=== PATIENT | female | born 1980 | race American Indian/Alaskan Native ===

== ENCOUNTER 2020-02-25 09:37 | Day surgery (SDC) | payer BC ==
[~2020-02-25 09:37] MED LIST: SODIUM CHLORIDE 0.9% 1000 ML 1,000 ML IV SCH
[2020-02-25] MEDS ORDERED: propofoL 200 MG/20 ML VIAL IV ONE ×3 (11:30→11:54)
[2020-02-25] MEDS ORDERED: LIDOCAINE MPF (2%) 20 MG/1 ML VIAL 5 ML ONE (12:05)
--- NOTE | 2020-02-25 12:11 | Procedure Note ---
Date of procedure: 02/25/20 Pre-op diagnosis: Changes in Bowel Habit Post-op diagnosis: other (R/o Microscopic Colitis/ R/O Ileitis/ Minor,Sigmoid Diverticuli) Procedure: Colonoscopy with Biopsy Anesthesia: MAC Surgeon: LATANYA STAUFFER Estimated blood loss: minimal Pathology: list Specimen disposition: to lab Condition: stable Disposition: same day (Treat with Linzess. Avoid aspirin and NSAID for 5 days; otherwise resume home medication and follow up in 1 to 2 weeks ([phone]).)
[2020-02-25 12:33] VITALS: BP 118/83
--- NOTE | 2020-02-25 13:18 | Operative Report ---
COLONOSCOPY INDICATIONS: This is a 40-year-old female who has been having changes in bowel habit. Colonoscopy was done to make sure that there was not any associated lower GI pathology present accounting for it. DESCRIPTION OF PROCEDURE: The procedure was done after getting informed consent with MAC anesthesia. Initial rectal exam was unremarkable. Instrument was passed through the rectum onto the cecum, which was identified with ileocecal valve and appendiceal orifice. Visualization was fair. The terminal ileum was intubated, showed normal mucosa. Biopsy was done to rule out for possible ileitis. Cecum, ascending colon, transverse colon, descending colon, and sigmoid was essentially normal other than for a solitary diverticula noted in the sigmoid and the rectum appeared normal on the retroverted view. Random biopsies were done throughout the colon to rule out for possible microscopic colitis with minimal bleeding. ASSESSMENT: Changes in bowel habit, rule out ileitis, rule out microscopic colitis, minor diverticula. No internal hemorrhoids noted. There was minimal bleeding associated with the procedure. PLAN: To wait for the biopsy results, have the patient avoid aspirin and aspirin-related products for the next few days. The patient may be given Linzess 145 mcg to be tried for her changes in bowel habits and have the patient follow up in the office in 1-2 weeks' time. The procedure was done in the GI lab with assistance of the GI lab team, which included RNImani with the assistance of anesthesia and the electroencephalographic technologistRegina. JOB# [id number] ALETHA/LILIANA
--- NOTE | 2020-02-25 14:12 | Anesthesia Day of Surgery ---
Anesthesia Day of Surgery - Day of Surgery Patient Examined: Yes Patient H&P Reviewed: Yes Patient is NPO: Yes
--- NOTE | 2020-02-25 14:12 | Post Anesthesia Evaluation ---
- Post Anesthesia Evaluation Patient Participated: Yes Airway Patent: Yes Stable Respiratory Function: Yes Nausea/Vomiting: No Temp > 96.8F: Yes Pain Manageable: Yes Adequeate Hydration: Yes Anesthesia Complications: No
--- NOTE | 2020-02-25 14:12 | Anesthesia Consultation ---
Anesthesia Consult and Med Hx - Airway Anesthetic Teeth Evaluation: Good ROM Head & Neck: Adequate Mental/Hyoid Distance: Adequate Mallampati Class: Class III Intubation Access Assessment: Possibly Difficult - Pulmonary Exam CTA: Yes - Cardiac Exam Cardiac Exam: RRR - Pre-Operative Health Status ASA Pre-Surgery Classification: ASA1 Proposed Anesthetic Plan: MAC - Pulmonary Hx Smoking: No Hx Respiratory Symptoms: No - Cardiovascular System Hx Hypertension: No - Central Nervous System CVA: No - Endocrine Hx Renal Disease: No Hx Liver Disease: No Hx Insulin Dependent Diabetes: No Hx Non-Insulin Dependent Diabetes: No Hx Thyroid Disease: No - Other Systems Hx Obesity: No
== END 2020-02-25 09:38 | disposition home or self-care (01) ==
LOC: GIO 09:37
DX: R19.4 Change in bowel habit (principal); K57.30 Diverticulosis of large intestine without perforation or abscess without bleeding; K63.89 Other specified diseases of intestine; Z79.899 Other long term (current) drug therapy
CPT/HCPCS: 45380; 81025; 88305; J2704; J7030

== ENCOUNTER 2020-03-03 08:51 | Day surgery (SDC) | payer BC ==
--- NOTE | 2020-03-03 10:23 | Anesthesia Consultation ---
Anesthesia Consult and Med Hx Date of service: 03/03/20 - Airway Anesthetic Teeth Evaluation: Good ROM Head & Neck: Adequate Mental/Hyoid Distance: Adequate Mallampati Class: Class I Intubation Access Assessment: Good - Pulmonary Exam CTA: Yes - Pre-Operative Health Status ASA Pre-Surgery Classification: ASA2 Proposed Anesthetic Plan: MAC - Pulmonary Hx Smoking: No Hx Asthma: No Hx Respiratory Symptoms: No Hx Sleep Apnea: No - Cardiovascular System Hx Hypertension: No Hx Angina: No Hx Valvular Heart Disease: No - Central Nervous System Hx Neuromuscular Disorder: No Hx Seizures: No CVA: No Hx Psychiatric Problems: No - Gastrointestinal Hx Gastroesophageal Reflux Disease: Yes - Endocrine Hx Renal Disease: No Hx Liver Disease: No Hx Insulin Dependent Diabetes: No Hx Non-Insulin Dependent Diabetes: No Hx Thyroid Disease: No - Other Systems Hx Alcohol Use: Yes Hx Substance Use: No Hx Cancer: No Hx Obesity: No - Additional Comments Anesthesia Medical History Comments: Patient denies previous anesthesia complications.
--- NOTE | 2020-03-03 10:27 | Anesthesia Day of Surgery ---
Anesthesia Day of Surgery - Day of Surgery Patient Examined: Yes Patient H&P Reviewed: Yes Patient is NPO: Yes Beta Blockers: No Cardiac Clearance: No Pulmonary Clearance: No
[2020-03-03] MEDS ORDERED: propofoL 200 MG/20 ML VIAL IV ONE (10:56)
[2020-03-03] MEDS ORDERED: LIDOCAINE MPF (2%) 20 MG/1 ML VIAL 5 ML ONE (10:57)
[2020-03-03] MEDS ORDERED: SODIUM CHLORIDE 0.9% 1000 ML IV SOLN IV ONE (11:48)
--- NOTE | 2020-03-03 12:01 | History and Physical Report ---
HISTORY OF PRESENT ILLNESS: This is a 40-year-old female who had a colonoscopy done about a week ago because of changes in her bowel habits. At that time, she was noted to have a normal looking mucosa. Biopsies at that time were done randomly from the colon as well as from the terminal ileum to rule out for microscopic colitis and for ileitis. The biopsy that was done from the ileum showed evidence of CD3 as well as CD20 cells. The patient also gives a history of gluten enteropathy and has been advised to have EGD done to make sure that she does not have any associated celiac disease or any changes in markers for abnormal lymphocytes like the CD3 and CD20 that was noted in the ileum. She is otherwise doing well. ALLERGIES: No known allergies. SOCIAL HISTORY: Denies history of smoking or alcohol use. No cardiac issues. No flu shots. PHYSICAL EXAMINATION: VITAL SIGNS: Temperature is 97.5, blood pressure is 123/83, pulse is 72, height is 5 feet 4 inches and weighs 170 pounds. HEENT: Shows no JVD. LUNGS: Clear to auscultation. CARDIOVASCULAR: Normal. ABDOMEN: Showed some lower abdominal tenderness. Bowel sounds present No pedal edema. NEUROLOGIC: The patient is otherwise alert and oriented. ASSESSMENT: Possible celiac disease, possible history of lymphoma since she had CD3 and CD20 cells in the ileum and minor diverticula. PLAN: To do an EGD for further assessment to check labs, namely CBC, follow up after the EGD and to do additional radiologic studies if warranted and also possibly to refer the patient to a automation and control engineer. JOB# [id number] ALETHA/LILIANA
--- NOTE | 2020-03-03 12:09 | Procedure Note ---
Date of procedure: 03/03/20 Pre-op diagnosis: GERD/ R/O Celiac Disease Post-op diagnosis: other (R/O Celiac disease/ R/o Eosinophilic Esophagitis/ Mild,distal Esophagitis/ Gastritis/ No Peptic Ulcer Disease noted) Procedure: EGD with Biopsy Anesthesia: MAC Surgeon: LATANYA STAUFFER Estimated blood loss: minimal Pathology: none Specimen disposition: to lab Condition: stable Disposition: same day (Avoid aspirin and NSAID for 5 days; otherwise resume home medication and follow up in 1 to 2 weeks ([phone]).)
--- NOTE | 2020-03-03 12:15 | Operative Report ---
PROCEDURE: Esophagogastroduodenoscopy with biopsy. INDICATIONS: This is a 40-year-old female who had a colonoscopy done a week ago. At that time, biopsy from the terminal ileum was positive for markers for CD3 and CD20 suggested that the patient possibly may have some underlying lymphoma. She also gives a history of gluten enteropathy. EGD was done to make sure that there was not any associated celiac disease or any other significant pathology involved with the duodenal lining. DESCRIPTION OF PROCEDURE: The procedure was done after getting informed consent with MAC anesthesia. Instrument was passed through the hypopharynx into the esophagus, which showed some mild distal erosive esophagitis. Photodocumentation and biopsy was done from the distal esophagus to assess for the severity of the esophagitis and also to rule out for eosinophilic esophagitis. The stomach showed some antral gastritis. No ulcers were noted in the straight or the retroverted view. The pylorus was patent. The duodenum in the first and second portion appeared normal. Biopsy was done from the second part to rule out for possible celiac disease. Additional biopsy was done from the gastric antrum, gastric body and angular incisura to rule out for H. pylori and atrophic gastritis. There was minimal bleeding associated with the procedure. No complications associated with the procedure. ASSESSMENT: Gastroesophageal reflux disease symptoms, mild distal erosive esophagitis, rule out eosinophilic esophagitis, rule out celiac disease, gastritis, no peptic ulcer disease noted, patent pylorus. PLAN: To have the patient avoid aspirin and aspirin-related products. Await for the biopsy results. Further treatment will be adjusted according to the biopsy findings. Continue with present treatment, avoid aspirin and aspirin-related products for the next 5 days, but otherwise resume home medication. Follow up in the office in 1-2 weeks' time. The procedure was done in the GI lab with assistance of the GI lab team including the senior technical recruiter, the GI nurse and the assistance of anesthesia. JOB# [id number] ALETHA/LILIANA
[2020-03-03 12:38] VITALS: BP 118/81
== END 2020-03-03 08:52 | disposition home or self-care (01) ==
LOC: GIO 08:51
DX: K21.00 Gastro-esophageal reflux disease with esophagitis, without bleeding (principal); K31.89 Other diseases of stomach and duodenum; K29.70 Gastritis, unspecified, without bleeding; Z79.899 Other long term (current) drug therapy; Z72.89 Other problems related to lifestyle
CPT/HCPCS: 43239; 81025; 88305; 88342; J2704; J7030

== ENCOUNTER 2020-03-23 12:09 | Outpatient (CLI) | payer BC ==
--- NOTE | 2020-03-23 15:38 | PET Report ---
PET/CT HISTORY: C85.90. Initial staging of lymphoma TECHNIQUE: The patient's fasting blood glucose was 76. The patient weighed 171 lbs. The patient wa s injected with 15.4 mCi of FDG in the left antecubital fossa at 1307 hours and imaging was started a t 1423 hours. The patient was imaged from the skull base to the thighs. [facility] CT dose reduction for ALARA by means of automated exposure control. Images were reviewed on a workstation. COMPARISON: None FINDINGS: IMAGED BRAIN: [Physiologic FDG uptake. NECK: Physiologic FDG uptake. CHEST WALL: Physiologic FDG uptake. MEDIASTINUM: Physiologic FDG uptake. LUNGS: Physiologic FDG uptake. HEPATOBILIARY: Physiologic FDG uptake. PANCREAS: Physiologic FDG uptake. SPLEEN: Physiologic FDG uptake. KIDNEYS/BLADDER: Physiologic FDG uptake. ADRENAL GLANDS: Physiologic FDG uptake. GI/MESENTERY: Physiologic FDG uptake. PELVIC VISCERA: Physiologic FDG uptake. LYMPH NODES: Physiologic FDG uptake. No adenopathy is detected. OSSEOUS STRUCTURES: Physiologic FDG uptake. ADDITIONAL FINDINGS: A 4.3 x 3.1 cm lesion in the left adnexa contains fat and soft tissue density c onsistent with a dermoid.. IMPRESSION: Negative PET CT. Incidental left adnexal dermoid. Signer Name: Calvin Simpson Jr, MD Signed: 03/23/2020 3:33 PM Workstation Name: [id number]
== END 2020-03-23 12:10 | disposition home or self-care (01) ==
LOC: PET 12:09
DX: C85.90 Non-Hodgkin lymphoma, unspecified, unspecified site (principal); N85.9 Noninflammatory disorder of uterus, unspecified
CPT/HCPCS: 78815; 82962; A9552